=== PATIENT | male | born 2000 | race Caucasian/White ===

== ENCOUNTER 2021-11-02 02:41 | Emergency (ER) | payer SELFPAY ==
[2021-11-02 02:43] VITALS: BP 134/84; PULSE 73; RESP 18; TEMP 36.6; O2SAT 99
[2021-11-02 03:44] LABS: Basophils Percent Auto 0.5 % (0.2-1.2); Eosinophils Absolute Auto 0.1 K/mm3 (0-0.3); Eosinophils Percent Auto 1.7 % (0-4.4); Hematocrit 49.6 % (42.0-52.0); Hemoglobin 16.1 g/dL (14.0-18.0); Immature Granulocyte Absolute 0.02 K/mm3 (0.00-0.031); Immature Granulocyte Percent A 0.3 % (0-0.5); Lymphocytes Absolute Auto 1.95 K/mm3 (0.9-3.2); Lymphocytes Percent Auto 30.2 % (18.3-44.2); Mean Corpuscular HGB Conc 32.5 g/dl (32-36); Mean Corpuscular Volume 86.1 fl (80-100); Mean Platelet Volume 10.6 fl (7.4-10.4); Monocytes Absolute Auto 0.9 K/mm3 (0.1-0.6); Monocytes Percent Auto 13.6 % (2.6-8.5); Neutrophils Absolute Auto 3.5 K/mm3 (1.3-6.7); Neutrophils Percent Auto 53.7 % (45.5-73.1); Platelet Count Result 217 k/mm3 (150-375); Red Blood Count 5.76 M/mm3 (4.6-6.20); Red Cell Distribution Width 12.9 % (11.5-14.5); White Blood Count 6.5 K/mm3 (4.5-10.0)
--- NOTE | 2021-11-02 03:48 | PC.NURSE ---
Contacted Deputy Mickey mann/ [facility] department in regards to filling out pt. involuntary petition for admission. States she will contact supervisor [employer] and decide what to do in regards to pt.
[2021-11-02 03:53] LABS: Bacteria Urine Trace /hpf; Mucus Urine Rare /lpf; RBC Urine 0-2 /hpf (0-2); Squamous Epithelial Cell Urine Rare /hpf (Few); Transitional Epi Cells Urine Rare /hpf (None Seen)
[2021-11-02 03:55] LABS: Appearance Urine Clear (Clear); Bilirubin Urine Negative (Negative); Blood Urine Negative (Negative); Color Urine Yellow (Yellow); Glucose Urine UA Negative (Negative); Ketones Urine Negative (Negative); Leukocyte Esterase Ur Negative LEU/UL (Negative); Nitrate Urine Negative (Negative); Protein Urine Negative (Negative); Specific Grav Ur >= 1.030 (1.001-1.035); Urobilinogen Urine 0.2 mg/dL (<2.0)
[2021-11-02 03:56] LABS: Acetaminophen < 10 ug/mL (10-30); Add Urine Microscopic? NO; Ethanol < 10 mg/dL (<10); Salicylate < 1.0 mg/dL (2-20)
[2021-11-02 03:59] LABS: Amphetamine Screen Urine Negative (Negative); Barbiturate Screen Urine Negative (Negative); Benzodiazepines Screen Urine Negative (Negative); Cannabinoid Screen Urine Positive (Negative); Cocaine Screen Urine Negative (Negative); Methadone Screen Urine Negative (Negative); Opiate Screen Urine Negative (Negative); Phencyclidine Screen Urine Negative (Negative)
--- NOTE | 2021-11-02 04:02 | PC.NURSE ---
pt. bradly Doshi
[2021-11-02 04:03] LABS: Alanine Aminotransferase 26 U/L (6-50); Albumin Level 4.2 g/dL (3.5-5.1); Alkaline Phosphatase 44 U/L (38-126); Anion Gap 9 mmol/L (8-16); Aspartate Amino Transferase 24 U/L (17-59); Bilirubin,Total 0.3 mg/dL (0.2-1.3); Blood Urea Nitrogen 15 mg/dL (9-20); Carbon Dioxide 24 mmol/L (22-30); Chloride 106 mmol/L (98-107); Estimated CRCL calculation 117 ml/min; Estimated Glomerular Filt Rate > 60; Glucose 90 mg/dL (65-110); Potassium 3.7 mmol/L (3.4-5.0); Sodium 139 mmol/L (137-145)
--- NOTE | 2021-11-02 04:09 | PC.NURSE ---
PD here to fill out pt. involuntary petition.
--- NOTE | 2021-11-02 04:10 | ED.PSYCH ---
HPI - Psych General Chief Complaint: Psychiatric Symptoms Stated Complaint: SI Time Seen by Provider: 11/02/21 02:56 History of Present Illness HPI Narrative: Patient is a 21-year-old male who presents ER with concerns for suicidal ideation. Patient was on the phone and texting with his ex-girlfriend in [facility]. He reports that the way they were fighting he became very upset and ended up telling her that he may as well not be alive and that he was going to take some pills. Patient reports he did not mean this. Police were contacted by the ex-girlfriend who then brought him in. Denies history of depression or suicidal ideation. No previous hospitalizations for his mental health. Denies being under the of intoxicants. Related Data Allergies Allergy/AdvReac Type Severity Reaction Status Date / Time ampicillin Allergy Hives Verified 11/02/21 02:46 Penicillins Allergy Hives Verified 11/02/21 02:46 Review of Systems Review of Systems: All systems reviewed & are unremarkable except as noted in HPI and below Constitutional: Constitutional: Denies chills and Denies fever(s) ENT: Denies nasal congestion and Denies sore throat Gastrointestinal: Gastrointestinal: Denies abdominal pain, Denies nausea and Denies vomiting Psychiatric: Psychiatric: Denies anxiety, Denies depression, Denies homicidal ideation and Denies suicidal ideation COUNT INCLUDES THE [facility] Past Medical History Medical History (Updated 11/02/21 @ 06:21 by Augie Ngo MD) Healthy adult male Surgical History Surgical History (Updated 11/02/21 @ 06:21 by Augie Ngo MD) No pertinent past surgical history Social History Social History Substance use type: marijuana Exam Narrative: GENERAL: Well-appearing, well-nourished, and in no acute distress. HEAD: Normocephalic, atraumatic. EYES: PERRL and EOMI. ENT: Mucous membranes moist. CHEST: Clear to auscultation. No respiratory distress. HEART: Regular rate and rhythm. Normal peripheral pulses. EXTREMITIES: Normal range of motion. No edema. SKIN: Warm, dry, no rash. NEURO: Alert and oriented x3. PSYCH: Normal mood and affect. Course Course Emergency Course: Patient has been evaluated by crisis health care worker. They have contracted him for safety. Additionally the fuse maker's office have served the patient with order protection papers from [place]. Vital Signs Vital signs: Vital Signs Temperature 97.9 F 11/02/21 02:43 Pulse Rate 73 11/02/21 02:43 Respiratory Rate 18 11/02/21 02:43 Blood Pressure 134/84 11/02/21 02:43 Pulse Oximetry 99 11/02/21 02:43 Oxygen Delivery Room Air 11/02/21 02:43 Temperature 97.9 F 11/02/21 02:43 Pulse Rate 73 11/02/21 02:43 Respiratory Rate 18 11/02/21 02:43 Blood Pressure 134/84 11/02/21 02:43 Pulse Oximetry 99 11/02/21 02:43 Oxygen Delivery Room Air 11/02/21 02:43 MDM - Psych Lab Data Result diagrams: 11/02/21 03:25 11/02/21 03:25 Labs: Lab Results 11/02/21 11/02/21 11/02/21 Range/Units 03:25 03:25 03:25 WBC 6.5 (4.5-10.0) K/mm3 RBC 5.76 (4.6-6.20) M/mm3 Hgb 16.1 (14.0-18.0) g/dL Hct 49.6 (42.0-52.0) % MCV 86.1 (80-100) fl MCH 28.0 (26-34) pg MCHC 32.5 (32-36) g/dl RDW 12.9 (11.5-14.5) % Plt Count 217 (150-375) k/mm3 MPV 10.6 H (7.4-10.4) fl Immature Gran % (Auto) 0.3 (0-0.5) % Neut % (Auto) 53.7 (45.5-73.1) % Lymph % (Auto) 30.2 (18.3-44.2) % [place] % (Auto) 13.6 H (2.6-8.5) % Eos % (Auto) 1.7 (0-4.4) % Baso % (Auto) 0.5 (0.2-1.2) % Lymph # (Auto) 1.95 (0.9-3.2) K/mm3 [place] # (Auto) 0.9 H (0.1-0.6) K/mm3 Eos # (Auto) 0.1 (0-0.3) K/mm3 Baso # (Auto) 0.0 (0.0-0.1) K/mm3 Abs Immat Gran (auto) 0.02 (0.00-0.031) K/mm3 Absolute Neuts (auto) 3.5 (1.3-6.7) K/mm3 Absolute Nucleated RBC 0.0 (0.0-0.012) K/mm3 Nucleated RBC % 0.0 (0.0-0.2) % Sodium
[2021-11-02 06:40] VITALS: BP 130/80; PULSE 78; RESP 19; O2SAT 97
== END 2021-11-02 06:40 | disposition home or self-care (01) ==
PROVIDERS: Emergency Provider Emergency Medicine
DX: F43.0 Acute stress reaction (principal)
CPT/HCPCS: 36415; 80053; 80307; 81003; 84443; 85025; 99284

== ENCOUNTER 2023-01-22 13:22 | Emergency (ER) | payer SELFPAY ==
[2023-01-22 13:51] VITALS: BP 91/53; PULSE 74; RESP 16; TEMP 37.3; O2SAT 100
--- NOTE | 2023-01-22 15:02 | ED.SKABFB ---
HPI - Skin/Abscess/Foreign Bdy General Chief complaint: Skin/Abscess/Foreign Body Stated complaint: sunburn on back Time Seen by Provider: 01/22/23 14:56 Source: patient and RN notes reviewed Mode of arrival: ambulatory Limitations: no limitations History of Present Illness HPI narrative: Patient presents today complaining of a sunburn to his bilateral shoulders and posterior neck that occurred 2 days ago. States he applied a min fall gel to his burn yesterday and this caused severe pain. States he cried himself to sleep last night due to this pain. He has also been applying aloe and ibuprofen without much relief. Patient states, ?I came here for a work note today because I can not put a shirt on and it hurts to move my arms. ? Related Data Allergies Allergy/AdvReac Type Severity Reaction Status Date / Time ampicillin Allergy Hives Verified 11/02/21 02:46 Penicillins Allergy Hives Verified 11/02/21 02:46 Review of Systems Review of Systems: CONSTITUTIONAL: Denies body aches, fever, chills, or sweats. EYES: Denies visual changes, redness, or discharge. ENT: Denies rhinorrhea, congestion, sore throat, or otalgia. CARDIOVASCULAR: Denies chest pain, palpitations, or edema. RESPIRATORY: Denies cough or dyspnea. GASTROINTESTINAL: Denies abdominal pain, nausea, vomiting, or diarrhea. GENITOURINARY: Denies dysuria or hematuria. SKIN: + sunburn MUSCULOSKELETAL: Denies back pain, joint pain, or myalgia. NEUROLOGIC: Denies headache, numbness, tingling, or weakness. PSYCH: Denies depression or anxiety. [facility] Past Medical History Medical History Healthy adult male Surgical History Surgical History No pertinent past surgical history Social History Social History Substance use type: marijuana Comments At time of signature, I have reviewed and agree with nursing past medical, surgical, social and family history unless otherwise noted. Please see nursing chart for further information. There is no relevant family history pertinent to the presenting complaint Exam Narrative: GENERAL: Well-appearing, well-nourished, and in no acute distress. HEAD: Normocephalic, atraumatic. EYES: EOMI. No redness or drainage. Conjunctivae normal. ENT: Mucous membranes pink and moist. NECK: Normal AROM. CHEST: No respiratory distress. EXTREMITIES: Normal range of motion. No edema. SKIN: Warm, dry, no rash. Capillary refill normal. Normal skin turgor. Second-degree sunburn to the bilateral shoulders and posterior neck. The shoulders are dry and scabbed over. The remainder of the arms are 1st degree. NEURO: No focal deficits. Alert and oriented x3. Gait steady. PSYCH: Normal affect. No signs of depression or anxiety. Course Course Level of Care: Express Care Visit Vital Signs Vital signs: Vital Signs Temperature 99.2 F 01/22/23 13:51 Pulse Rate 74 01/22/23 13:51 Respiratory Rate 16 01/22/23 13:51 Blood Pressure 91/53 L 01/22/23 13:51 Pulse Oximetry 100 01/22/23 13:51 Oxygen Delivery Room Air 01/22/23 13:51 Temperature 99.2 F 01/22/23 13:51 Pulse Rate 74 01/22/23 13:51 Respiratory Rate 16 01/22/23 13:51 Blood Pressure 91/53 L 01/22/23 13:51 Pulse Oximetry 100 01/22/23 13:51 Oxygen Delivery Room Air 01/22/23 13:51 Reviewed MDM - Skin/Abscess/Foreign Bdy MDM Narrative Medical decision making narrative: Patient has a sunburn. Discussed moisturizing the sunburn so it is not so dry and he can move around without pain. He will continue NSAIDs for pain as well. Will give patient a work note as requested. Differential Diagnosis Differential diagnosis: Likely other (1st degree burn, second-degree burn) Critical Care Time Critical Care Time Critical Care Time: No Discharge Plan Discharge
== END 2023-01-22 15:10 | disposition home or self-care (01) ==
PROVIDERS: Emergency Provider Nurse Practitioner
DX: L55.1 Sunburn of second degree (principal)
CPT/HCPCS: 99211; G0463